=== PATIENT | male | born 1955 | race Caucasian/White ===

== ENCOUNTER 2018-02-07 11:42 | Inpatient (IN) | payer MEDICARE ==
[2018-02-07] MEDS ORDERED: ASPIRIN 81 MG PO STA (11:57)
[2018-02-07] MEDS ORDERED: NITROGLYCERIN SL TABS 0.4 MG TAB SUBLINGUAL STA ×3 (11:57)
[2018-02-07] MEDS ORDERED: SODIUM CHLORIDE 0.9% 1,000 ML IV STA (11:57)
--- NOTE | 2018-02-07 12:02 | ED ---
General Adult HPI - General Chief complaint: Chest Pain Stated complaint: CHEST PAIN Time Seen by Provider: 02/07/18 11:52 Source: patient, family, RN notes reviewed Mode of arrival: wheelchair Limitations: no limitations - History of Present Illness Initial comments: Patient is a pleasant 63-year-old male presenting to the emergency department with complaints of chest discomfort. Onset of symptoms was last night around 2 or 3 in the morning. Discomfort progressively worsened. Patient tried to do some drywall work and symptoms got significantly worse becoming severe. Discomfort is currently improving and rated 5/10. Discomfort feels like tightness in the anterior chest. No radiation. No history of similar symptoms previously. Patient does have some associated dyspnea. Patient was diaphoretic when symptoms were severe. There was some associated nausea. Patient did also make a recent trip from [place] by car. - Related Data Home Medications Medication Instructions Recorded Confirmed Amitriptyline HCl [Elavil] 75 mg PO HS 02/07/18 02/07/18 Atorvastatin [Lipitor] 80 mg PO HS 02/07/18 02/07/18 Celecoxib [CeleBREX] 200 mg PO DAILY 02/07/18 02/07/18 Diltiazem HCl [Cartia Xt] 120 mg PO DAILY 02/07/18 02/07/18 Glimepiride [Amaryl] 1 mg PO BID 02/07/18 02/07/18 Losartan/Hydrochlorothiazide 1 tab PO DAILY 02/07/18 02/07/18 [Losartan-Hctz 100-12.5 mg Tab] Metoprolol Succinate [Toprol XL] 200 mg PO DAILY 02/07/18 02/07/18 Omeprazole 20 mg PO DAILY 02/07/18 02/07/18 Pregabalin [Lyrica] 150 mg PO TID 02/07/18 02/07/18 Spironolactone 50 mg PO DAILY 02/07/18 02/07/18 metFORMIN HCL 1,000 mg PO BID 02/07/18 02/07/18 sitaGLIPtin [Januvia] 100 mg PO DAILY 02/07/18 02/07/18 traMADol HCL [Ultram] 50 mg PO QID PRN 02/07/18 02/07/18 Allergies Allergy/AdvReac Type Severity Reaction Status Date / Time No Known Allergies Allergy Verified 02/07/18 12:26 Review of Systems ROS Statement: Those systems with pertinent positive or pertinent negative responses have been documented in the HPI. ROS Other: All systems not noted in ROS Statement are negative. Constitutional: Denies: fever Eyes: Denies: eye pain ENT: Denies: ear pain Respiratory: Reports: dyspnea. Denies: cough Cardiovascular: Reports: chest pain Endocrine: Denies: fatigue Gastrointestinal: Denies: abdominal pain Genitourinary: Denies: dysuria Musculoskeletal: Denies: back pain Skin: Denies: rash Neurological: Denies: weakness Past Medical History Past Medical History: Diabetes Mellitus, GERD/Reflux, Hyperlipidemia, Hypertension Additional Past Medical History / Comment(s): Diabetic Neuropathy History of Any Multi-Drug Resistant Organisms: None Reported Past Surgical History: Tonsillectomy Past Psychological History: No Psychological Hx Reported Smoking Status: Never smoker Past Alcohol Use History: Daily Past Drug Use History: None Reported General Exam Limitations: no limitations General appearance: alert, in no apparent distress Head exam: Present: atraumatic Eye exam: Present: normal appearance, PERRL ENT exam: Present: normal oropharynx Neck exam: Present: normal inspection Respiratory exam: Present: normal lung sounds bilaterally. Absent: chest wall tenderness Cardiovascular Exam: Present: regular rate, normal rhythm Expanded Peripheral pulses: 2+: Radial (R), Radial (L), Dorsalis Pedis (R), Dorsalis Pedis (L) GI/Abdominal exam: Present: soft. Absent: distended, tenderness Extremities exam: Present: normal inspection. Absent: pedal edema, calf tenderness Neurological exam: Present: alert Psychiatric exam: Present: normal affect, normal mood Skin exam: Present: normal color Course Vital Signs 02/07/18 02/07/18 02/07/18 11:57 12:13 12:27 Temperature 97.5 F L Pulse Rate 80 76 76 Respiratory 18 18 18 Rate Blood Pressure 167/104 137/80 124/73 O2 Sat by Pulse 98 95 98 Oximetry EKG Findings - EKG Comments: EKG Findings:: Normal sinus rhythm 81. ID 164. QRS 108. QT 386. QTc 448. Normal axis. Normal QRS. No acute ST change. Medical Decision Making - Medical Decision Making Patient reevaluated and resting comfortably in bed. Patient and family updated on results and plan. Case was discussed with Dr. Hernandez per family request who will admit for hospital call. - Lab Data Result diagrams: 02/07/18 11:56 02/07/18 11:56 Lab Results 02/07/18 02/07/18 02/07/18 Range/Units 11:56 11:56 11:56 WBC 11.9 H (3.8-10.6) k/uL RBC 4.48 (4.30-5.90) m/uL Hgb 14.9 (13.0-17.5) gm/dL Hct 42.0 (39.0-53.0) % MCV 93.6 (80.0-100.0) fL MCH 33.1 (25.0-35.0) pg MCHC 35.4 (31.0-37.0) g/dL RDW 12.8 (11.5-15.5) % Plt Count 181 (150-450) k/uL Neutrophils % 75 % Lymphocytes % 12 % Monocytes % 8 % Eosinophils % 2 % Basophils % 0 % Neutrophils # 9.0 H (1.3-7.7) k/uL Lymphocytes # 1.4 (1.0-4.8) k/uL Monocytes # 1.0 (0-1.0) k/uL Eosinophils # 0.2 (0-0.7) k/uL Basophils # 0.0 (0-0.2) k/uL PT (9.0-12.0) sec INR (<1.2) APTT (22.0-30.0) sec D-Dimer (<0.60) mg/L FEU Sodium 135 L (137-145) mmol/L Potassium 3.8 (3.5-5.1) mmol/L Chloride 100 (98-107) mmol/L Carbon Dioxide 25 (22-30) mmol/L Anion Gap 10 mmol/L BUN 14 (9-20) mg/dL Creatinine 0.80 (0.66-1.25) mg/dL Est GFR (CKD-EPI)AfAm >90 (>60 ml/min/1.73 sqM) Est GFR (CKD-EPI)NonAf >90 (>60 ml/min/1.73 sqM) Glucose 207 H (74-99) mg/dL Calcium 8.9 (8.4-10.2) mg/dL Magnesium 1.5 L (1.6-2.3) mg/dL Total Bilirubin 0.6 (0.2-1.3) mg/dL AST 23 (17-59) U/L ALT 36 (21-72) U/L Alkaline Phosphatase 82 (38-126) U/L Total Creatine Kinase 88 (55-170) U/L CK-MB (CK-2) 0.9 (0.0-2.4) ng/mL CK-MB (CK-2) Rel Index 1.0 Troponin I <0.012 (0.000-0.034) ng/mL NT-Pro-B Natriuret Pep pg/mL Total Protein 6.5 (6.3-8.2) g/dL Albumin 4.1 (3.5-5.0) g/dL Amylase 47 (30-110) U/L Lipase 271 (23-300) U/L 02/07/18 02/07/18 Range/Units 11:56 13:00 WBC (3.8-10.6) k/uL RBC (4.30-5.90) m/uL Hgb (13.0-17.5) gm/dL Hct (39.0-53.0) % MCV (80.0-100.0) fL MCH (25.0-35.0) pg MCHC (31.0-37.0) g/dL RDW (11.5-15.5) % Plt Count (150-450) k/uL Neutrophils % % Lymphocytes % % Monocytes % % Eosinophils % % Basophils % % Neutrophils # (1.3-7.7) k/uL Lymphocytes # (1.0-4.8) k/uL Monocytes # (0-1.0) k/uL Eosinophils # (0-0.7) k/uL Basophils # (0-0.2) k/uL PT 9.8 (9.0-12.0) sec INR 1.0 (<1.2) APTT 25.0 (22.0-30.0) sec D-Dimer 0.28 (<0.60) mg/L FEU Sodium (137-145) mmol/L Potassium (3.5-5.1) mmol/L Chloride (98-107) mmol/L Carbon Dioxide (22-30) mmol/L Anion Gap mmol/L BUN (9-20) mg/dL Creatinine (0.66-1.25) mg/dL Est GFR (CKD-EPI)AfAm (>60 ml/min/1.73 sqM) Est GFR (CKD-EPI)NonAf (>60 ml/min/1.73 sqM) Glucose (74-99) mg/dL Calcium (8.4-10.2) mg/dL Magnesium (1.6-2.3) mg/dL Total Bilirubin (0.2-1.3) mg/dL AST (17-59) U/L ALT (21-72) U/L Alkaline Phosphatase (38-126) U/L Total Creatine Kinase (55-170) U/L CK-MB (CK-2) (0.0-2.4) ng/mL CK-MB (CK-2) Rel Index Troponin I (0.000-0.034) ng/mL NT-Pro-B Natriuret Pep 129 pg/mL Total Protein (6.3-8.2) g/dL Albumin (3.5-5.0) g/dL Amylase (30-110) U/L Lipase (23-300) U/L - Radiology Data Radiology results: image reviewed (Chest x-ray shows some interstitial changes) Critical Care Time Critical Care Time: Yes Total Critical Care Time: 31 Disposition Clinical Impression: Unstable angina pectoris Disposition: ADMITTED IP TO THIS HOSP Is patient prescribed a controlled substance at d/c from ED?: No Referrals: Mack Delgado DO [Primary Care Provider] - 1-2 days Decision Time: 13:56
[2018-02-07 12:10] LABS: Basophils % (A) 0 %; Eosinophils # (A) 0.2 k/uL (0-0.7); Eosinophils % (A) 2 %; HGB 14.9 gm/dL (13.0-17.5); Lymphocytes # (A) 1.4 k/uL (1.0-4.8); Lymphocytes % (A) 12 %; MCH 33.1 pg (25.0-35.0); MCHC 35.4 g/dL (31.0-37.0); MCV 93.6 fL (80.0-100.0); Mean Platelet Volume 7.9; Monocytes % (A) 8 %; Neutrophils % (A) 75 %; Platelet Count 181 k/uL (150-450); RBC 4.48 m/uL (4.30-5.90); RDW 12.8 % (11.5-15.5); WBC 11.9 k/uL (3.8-10.6)
[2018-02-07 12:19] LABS: ALT 36 U/L (21-72); AST 23 U/L (17-59); Albumin 4.1 g/dL (3.5-5.0); Alkaline Phosphatase 82 U/L (38-126); Amylase 47 U/L (30-110); Anion Gap 10 mmol/L; Blood Urea Nitrogen 14 mg/dL (9-20); Calcium 8.9 mg/dL (8.4-10.2); Carbon Dioxide 25 mmol/L (22-30); Chloride 100 mmol/L (98-107); Glucose 207 mg/dL (74-99); Lipase 271 U/L (23-300); Magnesium 1.5 mg/dL (1.6-2.3); Potassium 3.8 mmol/L (3.5-5.1); Sodium 135 mmol/L (137-145); Total Bilirubin 0.6 mg/dL (0.2-1.3); Total Protein 6.5 g/dL (6.3-8.2)
[2018-02-07 12:22] LABS: D-Dimer 0.28 mg/L FEU (<0.60); Prothrombin Time 9.8 sec (9.0-12.0)
[2018-02-07] MEDS ORDERED: MAGNESIUM OXIDE 400 MG TAB PO STA (12:26)
[2018-02-07] MEDS ORDERED: NITROGLYCERIN OINT 1 INCH/GM PACKET TOPICAL STA (12:26)
[2018-02-07 12:27] LABS: Creatine Kinase 88 U/L (55-170)
[2018-02-07 12:40] LABS: Creatine Kinase MB 0.9 ng/mL (0.0-2.4); Troponin I <0.012 ng/mL (0.000-0.034)
--- NOTE | 2018-02-07 12:58 | XR ---
EXAMINATION TYPE: XR chest 2V DATE OF EXAM: 02/07/2018 HISTORY: Chest Pain. REFERENCE: NONE. FINDINGS: Heart size upper limits of normal. There is mild vascular congestion and subtle interstitia l change. Pleural spaces are clear. IMPRESSION: FINDINGS MOST CONSISTENT WITH MILD CONGESTIVE HEART FAILURE.
[2018-02-07] MEDS ORDERED: MORPHINE SULFATE 4 MG/ML SYRINGE IVP STA (13:21)
[2018-02-07] MEDS ORDERED: HEPARIN SODIUM,PORCINE 5,000 UNIT/ML 1 ML VIAL IV ONE (13:56)
[2018-02-07] MEDS ORDERED: HEPARIN SODIUM,PORCINE 5,000 UNIT/ML 1 ML VIAL IV PRN (13:56)
[2018-02-07] MEDS ORDERED: NITROGLYCERIN SL TABS 0.4 MG TAB SUBLINGUAL PRN (13:56)
[2018-02-07] MEDS ORDERED: HEPARIN SOD,PORK IN 0.45% NACL 25,000 UNIT in 0.45% NACL 1 500ML.BAG IV SCH (14:00)
--- NOTE | 2018-02-07 16:08 | P.HPIM ---
History of Present Illness H&P Date: 02/07/18 Chief Complaint: Chest pain This is a pleasant 63-year-old gentleman patient of Dr. Delgado in [place]. He has underlying history of diabetes mellitus type 2, hyperlipidemia, hypertension, diabetic neuropathy who is currently is sitting her daughter here in [place] and he drove all the way from [place] and took him 24 hours to come here. Her daughter is our nurse practitioner in the office. Patient has requested our service to follow the patient for the chest pain. He comes in with anterior substernal chest discomfort, radiating to the posterior region of the chest, without any radiation to the arms and shoulders, accompanied by diaphoresis, he working in the basement doing some drywall yesterday and woke up this morning at 3:00, with chest pressure, substernal, constant along with sharp pain during deep inspiration, this persisted there was no relief but has some relief during rest, there is no cough, patient has edema which has improving he has some nasal stuffiness, patient denies any history of MRI CAD or angina past. Stress test was over 10 years ago, echocardiogram over 10 years ago, patient does not see a variety saw operator on a routine basis, and however he was advised that he has either mitral valve disorder or other valve disorder. At home blood pressure was 140/90, blood sugars were okay Home he was given aspirin 325 mg, and subsequently evaluated in emergency room. Patient denies any history of DVT or PE in the past, While in the emergency room, he was given 3 nitroglycerin without any relief, initial troponins are negative less than 0.012, chest x-ray findings consistent with mild congestive heart failure with supple interstitial change d-dimer negative lipase normal at 271 EKG showing normal sinus rhythm with no acute ST- T wave changes. Consults to cardiology, echocardiogram to be performed along with serial troponins, Review of Systems Constitutional: Reports as per HPI, Denies anorexia, Denies chills, Denies chronic headaches, Denies chronic pain, Denies daytime sleepiness, Denies fatigue, Denies fever, Denies lethargy, Denies malaise, Denies night sweats, Denies poor appetite, Denies sweats, Denies weakness, Denies weight gain, Denies weight loss Ears, nose, mouth and throat: Reports as per HPI, Denies ant. neck pain, Denies bleeding gums, Denies dental pain, Denies dysphagia, Denies epistaxis, Denies headache, Denies hoarseness, Denies mouth pain, Denies nasal congestion, Denies nasal discharge, Denies neck fullness/pressure, Denies neck lump, Denies nose pain, Denies odynophagia, Denies post-nasal drip, Denies sinus pain, Denies sinus pressure, Denies swelling in mouth, Denies swelling in throat, Denies sore throat, Denies vertigo, Denies voice changes Cardiovascular: Reports as per HPI, Reports chest pain, Denies claudication, Denies decreased exercise tolerance, Denies dyspnea on exertion, Denies edema, Denies high blood pressure, Denies irregular heart beat, Denies leg edema, Denies lightheadedness, Denies orthopnea, Denies palpitations, Denies paroxysmal nocturnal dyspnea, Denies phlebitis, Denies rapid heart beat, Denies shortness of breath, Denies syncope Respiratory: Reports as per HPI, Denies congestion, Denies cough, Denies cough with sputum, Denies dyspnea, Denies excessive sputum, Denies hemoptysis, Denies home oxygen, Denies pain, Denies pain on inspiration, Denies pleurisy, Denies respiratory infections, Denies sleep apnea, Denies snoring, Denies wheezing Gastrointestinal: Reports as per HPI, Denies abdominal pain, Denies belching, Denies bloating, Denies BRBPR, Denies change in bowel habits, Denies coffee ground emesis, Denies constipation, Denies diarrhea, Denies dyspepsia, Denies early satiety, Denies excessive gas, Denies heartburn, Denies hematemesis, Denies hematochezia, Denies indigestion, Denies jaundice, Denies lactose intolerance, Denies loss of appetite, Denies melena, Denies nausea, Denies vomiting Genitourinary: Reports as per HPI, Denies decreased libido, Denies difficulties fathering child, Denies discharge, Denies dysuria, Denies erectile dysfunction, Denies flank pain, Denies genital pain, Denies genital sores, Denies hematuria, Denies impotence, Denies incontinence, Denies kidney stones, Denies nocturia, Denies polyuria, Denies testicular lump, Denies testicular pain, Denies urinary frequency, Denies urinary hesitancy, Denies urinary retention Musculoskeletal: Reports as per HPI, Denies arm numbness/tingling, Denies atrophy, Denies fractures, Denies frequent falls, Denies gait dysfunction, Denies hot joints, Denies leg numbness/tingling, Denies limitation of motion, Denies loss of height, Denies low back pain, Denies morning stiffness, Denies muscle cramps, Denies muscle weakness, Denies myalgias, Denies neck pain, Denies neck stiffness, Denies prior amputations, Denies redness of joints, Denies shooting arm pain, Denies shooting leg pain Integumentary: Reports as per HPI, Denies acne, Denies boils, Denies brittle nails, Denies change in hair/nails, Denies color changes, Denies darkening of skin, Denies depigmentation, Denies dryness, Denies foot/leg ulcers, Denies growths, Denies hirsutism, Denies lesions, Denies onychomycosis, Denies pruritus , Denies rash, Denies sores, Denies striae, Denies unusual bruising, Denies wounds Neurological: Reports as per HPI, Denies aphasia, Denies ataxia, Denies balance difficulties, Denies burning pain, Denies change in mentation, Denies change in smell/taste, Denies change in speech, Denies confusion, Denies convulsions, Denies double vision, Denies gait dysfunction, Denies head injury, Denies headaches, Denies hearing difficulties, Denies lack of coordination, Denies loss of vision, Denies memory loss, Denies migraines, Denies motor disturbance, Denies numbness, Denies paralysis, Denies paresthesias, Denies seizures, Denies sensory deficit, Denies spasticity, Denies syncope, Denies tic, Denies tingling , Denies transient paralysis, Denies tremors, Denies vertigo, Denies weakness, Denies visual changes Psychiatric: Reports as per HPI, Denies anhedonia, Denies anxiety, Denies anxiety attacks, Denies change in appetite, Denies change in libido, Denies change in sleep habits, Denies confusion, Denies depression, Denies difficulty concentrating, Denies disorientation, Denies hallucinations, Denies hopelessness , Denies hypersomnia, Denies insomnia, Denies irritability, Denies memory loss, Denies mood swings, Denies paranoia, Denies sadness/tearfulness, Denies sleep disturbances, Denies suicidal ideation Endocrine: Reports as per HPI, Denies cold intolerance, Denies deepening of the voice, Denies excessive sweating, Denies excessive thirst, Denies fatigue, Denies flushing, Denies heat intolerance, Denies high blood sugars, Denies increase in ring/shoe/hat size, Denies low blood sugars, Denies nocturia, Denies palpitations, Denies polydipsia, Denies polyphagia, Denies polyuria, Denies proptosis, Denies recent glucocorticoid use, Denies thyroid mass, Denies weight change Hematologic/Lymphatic: Reports as per HPI Allergic/Immunologic: Reports as per HPI, Denies allergic rhinitis, Denies anaphylaxis, Denies angioedema, Denies gluten intolerance, Denies persistent infections, Denies seasonal allergies, Denies urticaria, Denies wheezing Past Medical History Past Medical History: Diabetes Mellitus, GERD/Reflux, Hyperlipidemia, Hypertension Additional Past Medical History / Comment(s): Diabetic Neuropathy History of Any Multi-Drug Resistant Organisms: None Reported Past Surgical History: Tonsillectomy Past Psychological History: No Psychological Hx Reported Smoking Status: Never smoker Past Alcohol Use History: Daily Past Drug Use History: None Reported - Past Family History Father History Unknown: Yes (Lung cancer) Mother History Unknown: Yes (Lung cancer diseased) Brother(s) History Unknown: Yes (One brother with diabetes mellitus type 1, CAD, complications from diabetes including PAD neuropathy, one brother healthy, no sisters) Daughter(s) History Unknown: Yes (One daughter healthy) Medications and Allergies Home Medications Medication Instructions Recorded Confirmed Type Amitriptyline HCl [Elavil] 75 mg PO HS 02/07/18 02/07/18 History Atorvastatin [Lipitor] 80 mg PO HS 02/07/18 02/07/18 History Celecoxib [CeleBREX] 200 mg PO DAILY 02/07/18 02/07/18 History Diltiazem HCl [Cartia Xt] 120 mg PO DAILY 02/07/18 02/07/18 History Glimepiride [Amaryl] 1 mg PO BID 02/07/18 02/07/18 History Losartan/Hydrochlorothiazide 1 tab PO DAILY 02/07/18 02/07/18 History [Losartan-Hctz 100-12.5 mg Tab] Metoprolol Succinate [Toprol XL] 200 mg PO DAILY 02/07/18 02/07/18 History Omeprazole 20 mg PO DAILY 02/07/18 02/07/18 History Pregabalin [Lyrica] 150 mg PO TID 02/07/18 02/07/18 History Spironolactone 50 mg PO DAILY 02/07/18 02/07/18 History metFORMIN HCL 1,000 mg PO BID 02/07/18 02/07/18 History sitaGLIPtin [Januvia] 100 mg PO DAILY 02/07/18 02/07/18 History traMADol HCL [Ultram] 50 mg PO QID PRN 02/07/18 02/07/18 History Allergies Allergy/AdvReac Type Severity Reaction Status Date / Time No Known Allergies Allergy Verified 02/07/18 12:26 Physical Exam Vitals: Vital Signs Temp Pulse Resp BP Pulse Ox 02/07/18 12:27 76 18 124/73 98 02/07/18 12:13 76 18 137/80 95 02/07/18 11:57 97.5 F L 80 18 167/104 98 Intake and Output 02/06/18 02/07/18 02/07/18 22:59 06:59 14:59 Other: Weight 102.058 kg - Constitutional General appearance: cooperative, no acute distress - EENT Eyes: anicteric sclerae, EOMI, PERRLA, dentition normal, normal appearance ENT: NA/AT, normal oropharynx - Neck Neck: normal ROM - Cardiovascular Rhythm: regular Heart sounds: normal: S1, S2 Abnormal Heart Sounds: no systolic murmur, no diastolic murmur, no rub, no S3 Gallop, no S4 Gallop, no click, no other - Gastrointestinal General gastrointestinal: normal bowel sounds, soft - Integumentary Integumentary: decreased turgor, normal, normal turgor - Neurologic Neurologic: CNII-XII intact - Musculoskeletal Musculoskeletal: gait normal, strength equal bilaterally - Psychiatric Psychiatric: A&O x's 3, appropriate affect, intact judgment & insight Results CBC & Chem 7: 02/07/18 11:56 02/07/18 11:56 Labs: Abnormal Lab Results - Last 24 Hours (Table) 02/07/18 02/07/18 Range/Units 11:56 11:56 WBC 11.9 H (3.8-10.6) k/uL Neutrophils # 9.0 H (1.3-7.7) k/uL Sodium 135 L (137-145) mmol/L Glucose 207 H (74-99) mg/dL Magnesium 1.5 L (1.6-2.3) mg/dL Laboratory Results WBC 11.9 k/uL (3.8-10.6) H 02/07/18 11:56 RBC 4.48 m/uL (4.30-5.90) 02/07/18 11:56 Hgb 14.9 gm/dL (13.0-17.5) 02/07/18 11:56 Hct 42.0 % (39.0-53.0) 02/07/18 11:56 MCV 93.6 fL (80.0-100.0) 02/07/18 11:56 MCH 33.1 pg (25.0-35.0) 02/07/18 11:56 MCHC 35.4 g/dL (31.0-37.0) 02/07/18 11:56 RDW 12.8 % (11.5-15.5) 02/07/18 11:56 Plt Count 181 k/uL (150-450) 02/07/18 11:56 Neutrophils % 75 % 02/07/18 11:56 Lymphocytes % 12 % 02/07/18 11:56 Monocytes % 8 % 02/07/18 11:56 Eosinophils % 2 % 02/07/18 11:56 Basophils % 0 % 02/07/18 11:56 Neutrophils # 9.0 k/uL (1.3-7.7) H 02/07/18 11:56 Lymphocytes # 1.4 k/uL (1.0-4.8) 02/07/18 11:56 Monocytes # 1.0 k/uL (0-1.0) 02/07/18 11:56 Eosinophils # 0.2 k/uL (0-0.7) 02/07/18 11:56 Basophils # 0.0 k/uL (0-0.2) 02/07/18 11:56 PT 9.8 sec (9.0-12.0) 02/07/18 11:56 INR 1.0 (<1.2) 02/07/18 11:56 APTT 25.0 sec (22.0-30.0) 02/07/18 11:56 D-Dimer 0.28 mg/L FEU (<0.60) 02/07/18 11:56 Sodium 135 mmol/L (137-145) L 02/07/18 11:56 Potassium 3.8 mmol/L (3.5-5.1) 02/07/18 11:56 Chloride 100 mmol/L (98-107) 02/07/18 11:56 Carbon Dioxide 25 mmol/L (22-30) 02/07/18 11:56 Anion Gap 10 mmol/L 02/07/18 11:56 BUN 14 mg/dL (9-20) 02/07/18 11:56 Creatinine 0.80 mg/dL (0.66-1.25) 02/07/18 11:56 Est GFR (CKD-EPI)AfAm >90 (>60 ml/min/1.73 sqM) 02/07/18 11:56 Est GFR (CKD-EPI)NonAf >90 (>60 ml/min/1.73 sqM) 02/07/18 11:56 Glucose 207 mg/dL (74-99) H 02/07/18 11:56 Calcium 8.9 mg/dL (8.4-10.2) 02/07/18 11:56 Magnesium 1.5 mg/dL (1.6-2.3) L 02/07/18 11:56 Total Bilirubin 0.6 mg/dL (0.2-1.3) 02/07/18 11:56 AST 23 U/L (17-59) 02/07/18 11:56 ALT 36 U/L (21-72) 02/07/18 11:56 Alkaline Phosphatase 82 U/L (38-126) 02/07/18 11:56 Total Creatine Kinase 88 U/L (55-170) 02/07/18 11:56 CK-MB (CK-2) 0.9 ng/mL (0.0-2.4) 02/07/18 11:56 CK-MB (CK-2) Rel Index 1.0 02/07/18 11:56 Troponin I <0.012 ng/mL (0.000-0.034) 02/07/18 11:56 NT-Pro-B Natriuret Pep 129 pg/mL 02/07/18 13:00 Total Protein 6.5 g/dL (6.3-8.2) 02/07/18 11:56 Albumin 4.1 g/dL (3.5-5.0) 02/07/18 11:56 Amylase 47 U/L (30-110) 02/07/18 11:56 Lipase 271 U/L (23-300) 02/07/18 11:56 Thrombosis Risk Factor Assmnt - DVT/VTE Prophylaxis DVT/VTE Prophylaxis: Pharmacologic Prophylaxis ordered Assessment and Plan Plan: 1. Acute chest pain suspicious of unstable angina with known history of diabetes mellitus hyperlipidemia and hypertension, no previous history of IL in the past. No history of DVT. Patient had a recent trip coming in to [place] from [place], and had some leg swelling along the way. Patient will be seen consultation by cardiology, with CHF changes and chest x-ray, and lower extremity edema, we'll going to give IV Lasix 40 mg twice a day, cardiac troponins, heparin IV, and nitro did continue an aspirin, echocardiogram to be performed, patient might need a cardiac cath or stress test depending on laboratories next 2. Diabetes mellitus type 2, hemoglobin A1c to be done, continue on Amaryl 1 mg twice a day along with correctional scale Accu-Cheks before meals and at bedtime continue Januvia 3. Hypertension on diltiazem 120 mg daily daily spironolactone 50 mg daily losartan 100/12.5 daily and metoprolol 200 mg daily 4. Hyperlipidemia on Lipitor 80 mg daily fasting lipids in a.m. 5. Diabetes with neuropathy, Elavil 75 mg at bedtime and tramadol 50 4 times a day when necessary Celebrex 200 mg daily 6. CK D stage I, metformin to be helped with the anticipation that he might need to undergo cardiac cath 7. Suspect diastolic type of CHF exacerbation, acute with dependent edema, Lasix 40 mg IV twice a day for a few doses, to place potassium echocardiogram to be done 7. BMI of 31 DVT prophylaxis GI prophylaxis
[2018-02-07] MEDS ORDERED: FUROSEMIDE 10 MG/ML 4 ML VIAL IV ONE (16:15)
[2018-02-07] MEDS ORDERED: MORPHINE SULFATE 2 MG/ML SYRINGE IVP PRN (16:33)
[2018-02-07] MEDS ORDERED: PREGABALIN 75 MG CAP PO STA (16:35)
[2018-02-07 16:54] LABS: Glucose,Whole Blood 98 mg/dL (75-99)
[2018-02-07] MEDS: MORPHINE SULFATE 2 MG/ML SYRINGE IVP PRN ×2 (18:28→21:58)
[2018-02-07] MEDS: GLIMEPIRIDE 1 MG TAB PO SCH (18:29)
[2018-02-07 18:46] LABS: Creatine Kinase 72 U/L (55-170)
[2018-02-07 18:59] LABS: Creatine Kinase MB 0.8 ng/mL (0.0-2.4); Troponin I <0.012 ng/mL (0.000-0.034)
[2018-02-07] MEDS: NITROGLYCERIN OINT 1 INCH/GM PACKET TOPICAL SCH (19:26)
[2018-02-07] MEDS: traMADol 50 MG TAB PO PRN (20:06)
[2018-02-07] MEDS: ATORVASTATIN 80 MG TAB PO SCH (20:07)
[2018-02-07] MEDS: PREGABALIN 75 MG CAP PO SCH (20:07)
[2018-02-07] MEDS: AMITRIPTYLINE HCL 25 MG TAB PO SCH (20:07)
[2018-02-07 20:09] LABS: Glucose,Whole Blood 131 mg/dL (75-99)
[2018-02-08 00:10] LABS: Creatine Kinase 61 U/L (55-170)
[2018-02-08 00:23] LABS: Creatine Kinase MB 0.5 ng/mL (0.0-2.4); Troponin I <0.012 ng/mL (0.000-0.034)
[2018-02-08] MEDS: NITROGLYCERIN OINT 1 INCH/GM PACKET TOPICAL SCH ×2 (01:59→05:36)
[2018-02-08] MEDS: MORPHINE SULFATE 2 MG/ML SYRINGE IVP PRN ×2 (02:00→23:12)
[2018-02-08] MEDS: traMADol 50 MG TAB PO PRN ×2 (03:10→22:09)
[2018-02-08 03:13] LABS: Cholesterol 184 mg/dL (<200); HDL Cholesterol 43 mg/dL (40-60); LDL Cholesterol,Calculated 86 mg/dL (0-99); Triglycerides 277 mg/dL (<150)
[2018-02-08 04:33] LABS: Basophils % (A) 0 %; Eosinophils # (A) 0.3 k/uL (0-0.7); Eosinophils % (A) 3 %; HCT 45.1 % (39.0-53.0); HGB 14.7 gm/dL (13.0-17.5); Lymphocytes # (A) 1.7 k/uL (1.0-4.8); Lymphocytes % (A) 16 %; MCH 31.7 pg (25.0-35.0); MCHC 32.5 g/dL (31.0-37.0); MCV 97.4 fL (80.0-100.0); Mean Platelet Volume 7.5; Monocytes # (A) 0.9 k/uL (0-1.0); Monocytes % (A) 8 %; Neutrophils # (A) 7.7 k/uL (1.3-7.7); Neutrophils % (A) 70 %; Platelet Count 173 k/uL (150-450); RBC 4.63 m/uL (4.30-5.90); RDW 13.2 % (11.5-15.5)
[2018-02-08 04:42] LABS: Anion Gap 9 mmol/L; Blood Urea Nitrogen 12 mg/dL (9-20); Carbon Dioxide 29 mmol/L (22-30); Chloride 98 mmol/L (98-107); Glucose 153 mg/dL (74-99); Potassium 3.6 mmol/L (3.5-5.1); Sodium 136 mmol/L (137-145)
[2018-02-08 06:38] LABS: Glucose,Whole Blood 155 mg/dL (75-99)
[2018-02-08] MEDS ORDERED: FUROSEMIDE 10 MG/ML 4 ML VIAL IV SCH (07:00)
[2018-02-08] MEDS ORDERED: ASPIRIN 325 MG TAB PO STA (08:44)
[2018-02-08] MEDS ORDERED: ALPRAZolam 0.25 MG TAB PO PRN (08:44)
[2018-02-08] MEDS ORDERED: NITROGLYCERIN SL TABS 0.4 MG TAB SUBLINGUAL PRN (08:44)
[2018-02-08] MEDS ORDERED: ATORVASTATIN 80 MG TAB PO STA (08:44)
[2018-02-08] MEDS ORDERED: ALPRAZolam 0.5 MG TAB PO PRN (08:44)
[2018-02-08] MEDS ORDERED: SODIUM CHLORIDE 0.9% 1,000 ML in EMPTY BAG 1 BAG IV ONE (08:44)
[2018-02-08] MEDS: ASPIRIN 81 MG PO SCH (08:57)
[2018-02-08] MEDS ORDERED: NON-FORMULARY DRUG (Losartan/Hydrochlorothiazide [Losartan-Hctz 100-12.5 Mg Tab] 1 TAB) PO SCH (09:00)
[2018-02-08] MEDS ORDERED: ASPIRIN 325 MG TAB PO SCH (09:00)
[2018-02-08] MEDS: SPIRONOLACTONE 25 MG TAB PO SCH (09:11)
[2018-02-08] MEDS: HYDROCHLOROTHIAZIDE 12.5 MG CAP PO SCH (09:12)
[2018-02-08] MEDS: PANTOPRAZOLE 40 MG TABLET PO SCH (09:12)
[2018-02-08] MEDS: LOSARTAN 50 MG TAB PO SCH (09:12)
[2018-02-08] MEDS: MELOXICAM 7.5 MG TAB PO SCH (09:12)
[2018-02-08] MEDS: PREGABALIN 75 MG CAP PO SCH ×3 (09:12→21:53)
[2018-02-08] MEDS: METOPROLOL SUCCINATE (ER) 100 MG TAB.ER.24H PO SCH (09:12)
[2018-02-08] MEDS: MAGNESIUM OXIDE 400 MG TAB PO SCH (09:12)
[2018-02-08] MEDS: DILTIAZEM CD 120 MG CAP.ER.24H PO SCH (09:12)
[2018-02-08] MEDS ORDERED: VERAPAMIL 2.5 MG/ML 2 ML AMP ONE ×3 (10:48→11:27)
[2018-02-08] MEDS ORDERED: MIDAZOLAM 2 MG/2 ML VIAL ONE ×2 (10:48→11:20)
[2018-02-08] MEDS ORDERED: LIDOCAINE 1% INJ 10MG/ML (20 ML MDV) ONE (10:48)
[2018-02-08] MEDS ORDERED: diphenhydrAMINE 50 MG/ML 1 ML VIAL ONE (10:48)
[2018-02-08] MEDS ORDERED: diphenhydrAMINE 50 MG/ML 1 ML VIAL IVP ONE (11:09)
[2018-02-08] MEDS ORDERED: LIDOCAINE 1% INJ 10MG/ML (20 ML MDV) SQ ONE (11:09)
[2018-02-08] MEDS ORDERED: MIDAZOLAM 2 MG/2 ML VIAL IVP ONE ×2 (11:09→11:21)
[2018-02-08] MEDS ORDERED: VERAPAMIL SYRINGE (5 MG/10 ML) INTRAARTER ONE ×3 (11:10→11:41)
[2018-02-08] MEDS ORDERED: IV FLUID CONTINUATION 1,000 ML IV ONE (11:12)
--- NOTE | 2018-02-08 11:46 | P.CRDCN ---
History of Present Illness History of present illness: Mr. Rose is a pleasant 63-year-old male past medical history significant for hypertension, dyslipidemia, diabetes mellitus, gastroesophageal reflux disease, former smoker quit 20 years ago and daily use of alcohol. He denies history of coronary artery disease and has never seen a ski lift attendant for any reason. We have been asked to see him in consultation for chest pain. He is here visiting his daughter from [place] and assisting with basement renovations. He states they drove straight through on Thursday for over 20 hours and he did develop some lower extremity edema, which is not abnormal for him when driving long distances. The edema resolved by the time he woke up Thursday morning. Thursday night after eating a burger he felt nauseated and vomited one time. No chest pain or other symptoms at that time. He went to bed feeling normal. He woke up Thursday with a tight chest pain radiating through to the back that was worse when he took a deep breath. The pain was not significant so he carried on with his day and did work on the basement renovations. Through the day he continued to feel the tightness and it seemed to get worse with activity and improved when he sat down and rested. He has associated shortness of breath, dizziness and diaphoresis at times. The pain was continuing to radiate through to his back but there was no radiation to the arm, neck or jaw. He denies palpitations, cough, fever/chills, PND orthopnea. While in the hospital last night he went into atrial fibrillation with controlled ventricular response. He was asymptomatic during this. Per telemetry this was ongoing back and forth from sinus to a-fib. Currently he is in sinus. He denies history of any arrhythmia in the past. EKG on arrival reveals sinus mechanism with no acute ST or T wave abnormalities noted. Chest x-ray with mild vascular congestion noted. Laboratory data reviewed, WBC on admission 11.9 repeat this morning 11.0, hemoglobin 14.7, platelets 173, d-dimer 0.28, sodium 136, potassium 3.6, magnesium 1.5, cardiac enzymes negative 3, LDL 86, HDL 43, triglycerides 277 and total cholesterol 184, proBNP 129, creatinine 0.9. Current cardiac medications include atorvastatin 80 mg daily, Aldactone 50 mg daily, Toprol 200 mg daily, valsartan/HCTZ 100/12.5 mg daily and diltiazem 120 mg daily. He also takes Ultram, Elavil, Januvia, metformin, Lyrica, omeprazole , Amaryl and Celebrex. There is no old cardiac diagnostic testing to review. Review of Systems At the time of my exam: CONSTITUTIONAL: Denies fever. Denies chills. EYES: Denies blurred vision. Denies vision changes. Denies eye pain. EARS, NOSE, MOUTH & THROAT: Denies headache. Denies sore throat. Denies ear pain. CARDIOVASCULAR: Denies chest pain. Denies shortness of breath. Denies orthopnea. Denies PND. Denies palpitations. RESPIRATORY: Denies cough. GASTROINTESTINAL: Denies abdominal pain. Denies diarrhea. Denies constipation. Denies nausea. Denies vomiting. MUSCULOSKELETAL: Denies myalgias. INTEGUMENTARY: Denies pruitis. Denies rash. NEUROLOGIC: Denies numbness. Denies tingling. Denies weakness. PSYCHIATRIC: Denies anxiety. Denies depression. ENDOCRINE: Denies fatigue. Denies weight change. Denies polydipsia. Denies polyurina. GENITOURINARY: Denies burning, hematuria or urgency with micturation. HEMATOLOGIC: Denies history of anemia. Denies bleeding. Past Medical History Past Medical History: Diabetes Mellitus, GERD/Reflux, Hyperlipidemia, Hypertension Additional Past Medical History / Comment(s): Diabetic Neuropathy History of Any Multi-Drug Resistant Organisms: None Reported Past Surgical History: Tonsillectomy Past Psychological History: No Psychological Hx Reported Smoking Status: Never smoker Past Alcohol Use History: Daily Past Drug Use History: None Reported - Past Family History Father History Unknown: Yes (Lung cancer) Mother History Unknown: Yes (Lung cancer diseased) Brother(s) History Unknown: Yes (One brother with diabetes mellitus type 1, CAD, complications from diabetes including PAD neuropathy, one brother healthy, no sisters) Daughter(s) History Unknown: Yes (One daughter healthy) Medications and Allergies Home Medications Medication Instructions Recorded Confirmed Type Amitriptyline HCl [Elavil] 75 mg PO HS 02/07/18 02/07/18 History Atorvastatin [Lipitor] 80 mg PO HS 02/07/18 02/07/18 History Celecoxib [CeleBREX] 200 mg PO DAILY 02/07/18 02/07/18 History Diltiazem HCl [Cartia Xt] 120 mg PO DAILY 02/07/18 02/07/18 History Glimepiride [Amaryl] 1 mg PO BID 02/07/18 02/07/18 History Losartan/Hydrochlorothiazide 1 tab PO DAILY 02/07/18 02/07/18 History [Losartan-Hctz 100-12.5 mg Tab] Metoprolol Succinate [Toprol XL] 200 mg PO DAILY 02/07/18 02/07/18 History Omeprazole 20 mg PO DAILY 02/07/18 02/07/18 History Pregabalin [Lyrica] 150 mg PO TID 02/07/18 02/07/18 History Spironolactone 50 mg PO DAILY 02/07/18 02/07/18 History metFORMIN HCL 1,000 mg PO BID 02/07/18 02/07/18 History sitaGLIPtin [Januvia] 100 mg PO DAILY 02/07/18 02/07/18 History traMADol HCL [Ultram] 50 mg PO QID PRN 02/07/18 02/07/18 History Allergies Allergy/AdvReac Type Severity Reaction Status Date / Time No Known Allergies Allergy Verified 02/07/18 12:26 Physical Exam Vitals: Vital Signs Temp Pulse Pulse Resp BP BP BP 02/08/18 07:32 98.8 F 92 16 108/72 02/08/18 04:00 18 02/08/18 03:05 99.8 F H 102 H 18 127/84 02/07/18 23:57 18 02/07/18 23:10 98.9 F 88 18 110/74 02/07/18 20:00 18 02/07/18 19:10 99.4 F 78 18 152/80 02/07/18 15:55 02/07/18 15:00 98.5 F 56 L 18 125/73 02/07/18 14:29 76 18 131/75 02/07/18 12:27 76 18 124/73 02/07/18 12:13 76 18 137/80 02/07/18 11:57 97.5 F L 80 18 167/104 Pulse Ox 02/08/18 07:32 92 L 02/08/18 04:00 02/08/18 03:05 98 02/07/18 23:57 02/07/18 23:10 94 L 02/07/18 20:00 02/07/18 19:10 94 L 02/07/18 15:55 98 02/07/18 15:00 92 L 02/07/18 14:29 99 02/07/18 12:27 98 02/07/18 12:13 95 02/07/18 11:57 98 Intake and Output 02/07/18 02/08/18 02/08/18 22:59 06:59 14:59 Intake Total 145.667 201.559 Balance 145.667 201.559 Intake: Intake, IV Titration 145.667 201.559 Amount Heparin Sod,Pork in 0.45% 145.667 201.559 NaCl 25,000 unit In 0.45 % NaCl 1 500ml.bag @ 9.8 UNITS/KG/HR 20 mls/hr IV .Q24H [facility] Rx#:[id number] Other: Voiding Method Toilet Toilet # Voids 1 1 Weight 105.7 kg Blood pressure 108/72 heart rate 92 afebrile maintaining oxygen saturation on room air GENERAL: This is a 63-year-old male in no apparent distress at the time of my examination. HEENT: Head is atraumatic, normocephalic. Pupils are equal, round. Sclerae anicteric. Conjunctivae are clear. Mucous membranes of the mouth are moist. Neck is supple. There is no jugular venous distention. No carotid bruit is heard. LUNGS: Clear to auscultation no wheezes, rales or rhonchi. No chest wall tenderness is noted on palpation or with deep breathing. HEART: Regular rate and rhythm without murmurs, rubs or gallops. S1 and S2 heard. ABDOMEN: Soft, nontender. Bowel sounds are heard. No organomegaly noted. EXTREMITIES: No evidence of peripheral edema and no calf tenderness noted. VASCULAR: Radial and dorsalis pedis pulses palpated, no evidence of clubbing. NEUROLOGIC: Patient is awake, alert and oriented x3. Results 02/08/18 03:51 02/08/18 03:51 Cardiac Enzymes 02/07/18 02/07/18 02/07/18 Range/Units 11:56 11:56 17:53 AST 23 (17-59) U/L CK-MB (CK-2) 0.9 0.8 (0.0-2.4) ng/mL Troponin I <0.012 <0.012 (0.000-0.034) ng/mL 02/07/18 Range/Units 23:36 AST (17-59) U/L CK-MB (CK-2) 0.5 (0.0-2.4) ng/mL Troponin I <0.012 (0.000-0.034) ng/mL Coagulation 02/07/18 02/07/18 02/08/18 Range/Units 11:56 20:24 03:51 PT 9.8 (9.0-12.0) sec APTT 25.0 32.3 H 35.6 H (22.0-30.0) sec Lipids 02/07/18 Range/Units 11:56 Triglycerides 277 H (<150) mg/dL Cholesterol 184 (<200) mg/dL HDL Cholesterol 43 (40-60) mg/dL CBC 02/07/18 02/08/18 Range/Units 11:56 03:51 WBC 11.9 H 11.0 H (3.8-10.6) k/uL RBC 4.48 4.63 (4.30-5.90) m/uL Hgb 14.9 14.7 (13.0-17.5) gm/dL Hct 42.0 45.1 (39.0-53.0) % Plt Count 181 173 (150-450) k/uL Comprehensive Metabolic Panel 02/07/18 02/08/18 Range/Units 11:56 03:51 Sodium 135 L 136 L (137-145) mmol/L Potassium 3.8 3.6 (3.5-5.1) mmol/L Chloride 100 98 (98-107) mmol/L Carbon Dioxide 25 29 (22-30) mmol/L BUN 14 12 (9-20) mg/dL Creatinine 0.80 0.90 (0.66-1.25) mg/dL Glucose 207 H 153 H (74-99) mg/dL Calcium 8.9 9.0 (8.4-10.2) mg/dL AST 23 (17-59) U/L ALT 36 (21-72) U/L Alkaline Phosphatase 82 (38-126) U/L Total Protein 6.5 (6.3-8.2) g/dL Albumin 4.1 (3.5-5.0) g/dL Current Medications Generic Name Dose Route Start Last Admin Trade Name Freq PRN Reason Stop Dose Admin Amitriptyline HCl 75 mg 02/07/18 21:00 02/07/18 20:07 Elavil PO 75 mg HS SEAN Administration Aspirin 325 mg 02/08/18 09:00 Aspirin PO DAILY [facility] Atorvastatin Calcium 80 mg 02/07/18 21:00 02/07/18 20:07 Lipitor PO 80 mg HS SEAN Administration Diltiazem HCl 120 mg 02/08/18 09:00 Cardizem Cd PO DAILY [facility] Furosemide 40 mg 02/08/18 07:00 Lasix IV 0700,1500 SEAN Glimepiride 1 mg 02/07/18 17:30 02/07/18 18:29 Amaryl PO Not Given AC-BID SEAN Heparin Sodium (Porcine) 0 unit 02/07/18 13:56 Heparin IV Q6HR PRN Low PTT Protocol Hydrochlorothiazide 12.5 mg 02/08/18 09:00 Hydrodiuril PO DAILY [facility] Sodium Chloride 1,000 mls @ 20 mls/hr 02/07/18 11:57 02/07/18 12:07 Saline 0.9% IV 02/08/18 11:56 20 mls/hr .Q24H STA Administration Heparin Sodium/Sodium Chloride 500 mls @ 20 mls/hr 02/07/18 14:00 02/08/18 05 :36 25,000 unit/ Sodium Chloride IV 15.8 units/kg/hr .Q24H SEAN 32.25 mls/hr Titration Protocol 9.8 UNITS/KG/HR Linagliptin 5 mg 02/08/18 09:00 Tradjenta PO DAILY [facility] Losartan Potassium 100 mg 02/08/18 09:00 Cozaar PO DAILY [facility] Magnesium Oxide 400 mg 02/08/18 09:00 Mag-Ox PO DAILY [facility] Meloxicam 7.5 mg 02/08/18 09:00 Mobic PO DAILY [facility] Metoprolol Succinate 200 mg 02/08/18 09:00 Toprol Xl PO DAILY [facility] Morphine Sulfate 1 mg 02/07/18 16:33 Morphine Sulfate (Inj) IVP Q3HR PRN Mild Pain Morphine Sulfate 2 mg 02/07/18 16:34 02/08/18 02:00 Morphine Sulfate (Inj) IVP 2 mg Q3HR PRN Administration Moderate to Severe Pain Nitroglycerin 1 inch 02/07/18 18:00 02/08/18 05:36 Nitro-Bid Oint TOPICAL Not Given Q6HR [facility] Nitroglycerin 0.4 mg 02/07/18 13:56 Nitrostat SUBLINGUAL Q5M PRN Chest Pain Pantoprazole Sodium 40 mg 02/08/18 07:30 Protonix PO AC-BRKFST [facility] Pregabalin 150 mg 02/07/18 22:00 02/07/18 20:07 Lyrica PO 150 mg TID SEAN Administration Sodium Chloride 10 ml 02/07/18 21:00 02/07/18 20:07 Saline Flush IV 10 ml BID SEAN Administration Spironolactone 50 mg 02/08/18 09:00 Aldactone PO DAILY [facility] Tramadol HCl 50 mg 02/07/18 16:26 02/08/18 03:10 Ultram PO 50 mg QID PRN Administration Pain Intake and Output 02/07/18 02/08/18 02/08/18 22:59 06:59 14:59 Intake Total 145.667 201.559 Balance 145.667 201.559 Intake: Intake, IV Titration 145.667 201.559 Amount Heparin Sod,Pork in 0.45% 145.667 201.559 NaCl 25,000 unit In 0.45 % NaCl 1 500ml.bag @ 9.8 UNITS/KG/HR 20 mls/hr IV .Q24H [facility] Rx#:[id number] Other: Voiding Method Toilet Toilet # Voids 1 1 Weight 105.7 kg 02/08/18 03:51 02/08/18 03:51 Assessment and Plan Assessment: ASSESSMENT Unstable angina New onset paroxysmal atrial fibrillation Hypomagnesemia, replaced Hypertension Dyslipidemia Diabetes mellitus PLAN Obtain 2D echocardiogram and doppler study to assess cardiac structure and function. Check TSH. Recommend proceeding with coronary angiography to further assess for coronary artery disease. I have discussed the risks, benefits and alternative therapies for the above-mentioned procedure and for both sedation/analgesia as well as necessary blood product administration, if indicated, as they pertain to this patient. The patient has indicated understanding and acceptance of the risks and procedures discussed. Questions have been answered appropriately and he is agreeable to move forward with above stated procedure. Case has been boarded and pre-cath orders placed. Anti-coagulation will have to be addressed after his procedure for new onset of atrial fibrillation. He has been on a heparin infusion since admission for ACS protocol. Further recommendations to follow based on clinical course. Thank you kindly for this consultation. Nurse Practitioner note has been reviewed, I agree with a documented findings and plan of care. Patient was seen and examined.
[2018-02-08] MEDS ORDERED: IOPAMIDOL-370 125ML BTL INJ ONE (11:51)
--- NOTE | 2018-02-08 11:55 | ECHOF ---
Referral Reason:ua MEASUREMENTS -------- HEIGHT: 182.9 cm WEIGHT: 105.7 kg BP: 127/84 IVSd: 1.2 cm (0.6 - 1.1) LVIDd: 5.2 cm (3.9 - 5.3) LVPWd: 1.3 cm (0.6 - 1.1) IVSs: 1.6 cm LVIDs: 4.7 cm LVPWs: 1.8 cm Ao Diam: 3.5 cm (2.0 - 3.7) AV Cusp: 2.2 cm (1.5 - 2.6) LA Diam: 3.5 cm (2.7 - 3.8) MV E Reji: 0.35 m/s MV DecT: 345 ms MV A Reji: 0.46 m/s MV E/A Ratio: 0.76 RAP: 5.00 mmHg RVSP: 24.97 mmHg FINDINGS -------- Sinus rhythm. This was a techncally difficult study with suboptimal views, , Lumason utilized for enhancement of im ages. The left ventricular size is normal. There is mild concentric left ventricular hypertrophy. Overa ll left ventricular systolic function is normal with, an EF between 55 - 60 %. The right ventricle is normal in size. The left atrial size is normal. The right atrial size is normal. 5.0mg OF Lumason UTLIZED: 2 OR MORE WALL SEGMENTS NOT VISUALIZED. The aortic valve was not well visualized. The mitral valve was not well visualized. Mild mitral regurgitation is present. Mild tricuspid regurgitation present. There is no evidence of pulmonary hypertension. The right v entricular systolic pressure, as measured by Doppler, is 24.97mmHg. The pulmonic valve was not well visualized. There is no pulmonic regurgitation present. The aortic root size is normal. There is no pericardial effusion. CONCLUSIONS -------- 1. Sinus rhythm. 2. This was a techncally difficult study with suboptimal views, , Lumason utilized for enhancement of images. 3. The left ventricular size is normal. 4. There is mild concentric left ventricular hypertrophy. 5. Overall left ventricular systolic function is normal with, an EF between 55 - 60 %. 6. The left atrial size is normal. 7. 5.0mg OF Lumason UTLIZED: 2 OR MORE WALL SEGMENTS NOT VISUALIZED. 8. The aortic valve was not well visualized. 9. Mild mitral regurgitation is present. 10. Mild tricuspid regurgitation present. 11. There is no evidence of pulmonary hypertension. 12. The pulmonic valve was not well visualized. 13. There is no pulmonic regurgitation present. 14. The aortic root size is normal. 15. There is no pericardial effusion. TAXONOMY TEACHER: Dee Patel RDCS
[2018-02-08] MEDS ORDERED: RX INFO: IV CONTRAST WAS GIVEN 1 EACH MISC MISCELLANE PRN (12:09)
[2018-02-08] MEDS ORDERED: SODIUM CHLORIDE 0.9% 1,000 ML IV SCH (12:15)
--- NOTE | 2018-02-08 12:54 | CC ---
CARDIAC CATHETERIZATION REPORT Mr. Rose is a 63-year-old male who was visiting from [place] with a history of hypertension, hyperlipidemia, diabetes mellitus, who presented with symptoms of chest tightness, exertion pattern as well as dyspnea on exertion. He had no enzymatic changes but on his EKG, he had episode of paroxysmal atrial fibrillation and because of that, his multiple risk factors, recommendation made regarding cardiac catheterization. The procedures, risks and complications were discussed with the patient who is in full understanding and agreement. PROCEDURE: Patient was brought to the lab instructor in a fasting semi-sedated state after receiving fentanyl and Benadryl and achieving moderate conscious sedated state. Using Xylocaine anesthesia and Seldinger technique, a 6-Jordanian sheath was introduced in the right radial artery. Selective right coronary angiography performed using 5-Jordanian 3.5 bend right and left Lobo catheter. Attempts to cannulate the left main using a 5-Jordanian 3.5 left Lobo, 6-Jordanian Richard and a 5-Jordanian multipurpose were unsuccessful because of severe spasm in the radial artery that would not improve in spite of intra-arterial verapamil as well as sedation. Following that, using Xylocaine anesthesia and Seldinger technique, a 6-Jordanian sheath was introduced in the right femoral artery. Selective left coronary angiography performed using 6-Jordanian 4 bend left Lobo catheter. Images of the coronary arteries were obtained. Following that, a 6-Jordanian tight pigtail catheter was introduced in the left ventricle and a 30 degree ARNDT view of the left ventricle was obtained. Following that, catheter and sheaths were removed. Hemostasis was obtained with deployment of a TR band and compression of the right femoral artery. There was no immediate complication. Patient is returned to his room in stable condition. Of note, the patient received 5000 units of intravenous heparin as well as intra-arterial verapamil. FINDINGS: LEFT MAIN: This is a large-sized vessel, bifurcating into left circumflex, left anterior descending artery. Left main coronary artery has no evidence of high-grade stenosis. LEFT ANTERIOR DESCENDING ARTERY: This is a large-sized vessel, reaching toward the apex, tapers down in distal third, giving rise to 3 diagonal branches, the first one is largest in caliber. The proximal left anterior descending artery has 20% to 30% plaque without any evidence of high-grade stenosis. LEFT CIRCUMFLEX: This is a nondominant vessel, giving rise to a large proximal obtuse marginal branch. The second and third obtuse marginal branch are small in caliber. The left circumflex has mild intimal disease without any evidence of high-grade stenosis. RIGHT CORONARY ARTERY: This is a large dominant vessel, bifurcating into PDA posterolateral segment branches. The PDA reaches toward the inferoapical wall. The right coronary artery in the mid segment has mild intimal disease without any evidence of high-grade stenosis. LEFT VENTRICULOGRAM: Left ventriculogram is performed in 30-degree ARNDT view and revealed normal left ventricular size and systolic function, ejection fraction 55%. There was no significant mitral regurgitation. HEMODYNAMICS: There was no gradient across the aortic valve, the left ventricular end- diastolic pressure was 12 mmHg. CONCLUSION: 1. Mild triple-vessel coronary artery disease. 2. Normal left ventricular size and systolic function. RECOMMENDATION: In view of finding anatomy, I recommend continue medical therapy with aggressive risk factor modifications. Patient will be anticoagulated and start on drug. Those findings and recommendation were discussed with the patient who is in full understanding and agreement. Duration of procedure is 26 minutes. MMODL / IJN: [id number] /
[2018-02-08 13:02] LABS: Glucose,Whole Blood 125 mg/dL (75-99)
[2018-02-08] MEDS ORDERED: IPRATROPIUM-ALBUTEROL 3 ML NEB INHALATION PRN (13:57)
[2018-02-08] MEDS: GLIMEPIRIDE 1 MG TAB PO SCH ×2 (14:01→17:51)
[2018-02-08] MEDS: FLECAINIDE 50 MG TAB PO SCH ×2 (14:07→21:53)
[2018-02-08] MEDS: LINAGLIPTIN 5 MG TABLET PO SCH (14:52)
[2018-02-08 15:23] LABS: Hemoglobin A1C 6.3 % (4.0-6.0)
--- NOTE | 2018-02-08 15:33 | P.PN ---
Subjective Progress Note Date: 02/08/18 This is a pleasant 63-year-old gentleman patient of Dr. Delgado in [place]. 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 Her daughter is our nurse practitioner in the office. Patient has requested our service to follow the patient for the chest pain. He comes in with anterior substernal chest discomfort, radiating to the posterior region of the chest, without any radiation to the arms and shoulders, accompanied by diaphoresis, he working in the basement doing some drywall yesterday and woke up this morning at 3:00, with chest pressure, substernal, constant along with sharp pain during deep inspiration, this persisted there was no relief but has some relief during rest, there is no cough, patient has edema which has improving he has some nasal stuffiness, patient denies any history of MRI CAD or angina past. Stress test was over 10 years ago, echocardiogram over 10 years ago, patient does not see a fund manager on a routine basis, and however he was advised that he has either mitral valve disorder or other valve disorder. At home blood pressure was 140/90, blood sugars were okay Home he was given aspirin 325 mg, and subsequently evaluated in emergency room. Patient denies any history of DVT or PE in the past, While in the emergency room, he was given 3 nitroglycerin without any relief, initial troponins are negative less than 0.012, chest x-ray findings consistent with mild congestive heart failure with supple interstitial change d-dimer negative lipase normal at 271 EKG showing normal sinus rhythm with no acute ST- T wave changes. Consults to cardiology, echocardiogram to be performed along with serial troponins, 02/08: Echocardiogram reveals EF of 55-60%, mild concentric left ventricular hypertrophy, mild mitral regurgitation, mild tricuspid regurgitation, no pulmonary hypertension. Patient has been seen by cardiology and is undergoing heart catheterization that revealed mild triple-vessel coronary artery disease and normal left jugular size and systolic function. Plan is to start the patient on anticoagulation and antiarrhythmic. Patient was started on flecainide Objective - Vital Signs Vital signs: Vital Signs Temp 98.8 F 02/08/18 07:32 Pulse 92 02/08/18 08:00 Resp 16 02/08/18 08:00 BP 108/72 02/08/18 07:32 Pulse Ox 92 L 02/08/18 07:32 Intake & Output 02/07/18 02/08/18 02/08/18 18:59 06:59 18:59 Intake Total 347.226 Balance 347.226 Weight 105.7 kg Intake: Intake, IV Titration 347.226 Amount Heparin Sod,Pork in 0.45% 347.226 NaCl 25,000 unit In 0.45 % NaCl 1 500ml.bag @ 9.8 UNITS/KG/HR 20 mls/hr IV .Q24H SEAN Rx#:[id number] Other: Voiding Method Toilet Toilet Toilet # Voids 1 - Exam General appearance: cooperative, no acute distress - EENT Eyes: anicteric sclerae, EOMI, PERRLA, dentition normal, normal appearance ENT: NA/AT, normal oropharynx - Neck Neck: normal ROM - Cardiovascular Rhythm: regular Heart sounds: normal: S1, S2 Abnormal Heart Sounds: no systolic murmur, no diastolic murmur, no rub, no S3 Gallop, no S4 Gallop, no click, no other - Gastrointestinal General gastrointestinal: normal bowel sounds, soft - Integumentary Integumentary: decreased turgor, normal, normal turgor - Neurologic Neurologic: CNII-XII intact - Musculoskeletal Musculoskeletal: gait normal, strength equal bilaterally - Psychiatric Psychiatric: A&O x's 3, appropriate affect, intact judgment & insight - Labs CBC & Chem 7: 02/08/18 03:51 02/08/18 03:51 Labs: Abnormal Lab Results - Last 24 Hours (Table) 02/07/18 02/07/18 02/07/18 Range/Units 11:56 11:56 11:56 WBC 11.9 H (3.8-10.6) k/uL Neutrophils # 9.0 H (1.3-7.7) k/uL APTT (22.0-30.0) sec Sodium 135 L (137-145) mmol/L Glucose 207 H (74-99) mg/dL POC Glucose (mg/dL) (75-99) mg/dL Magnesium 1.5 L (1.6-2.3) mg/dL Triglycerides 277 H (<150) mg/dL 0802/07/18 02/08/18 Range/Units 20:07 20:24 03:51 WBC 11.0 H (3.8-10.6) k/uL Neutrophils # (1.3-7.7) k/uL APTT 32.3 H (22.0-30.0) sec Sodium (137-145) mmol/L Glucose (74-99) mg/dL POC Glucose (mg/dL) 131 H (75-99) mg/dL Magnesium (1.6-2.3) mg/dL Triglycerides (<150) mg/dL 02/08/18 02/08/18 02/08/18 Range/Units 03:51 03:51 06:31 WBC (3.8-10.6) k/uL Neutrophils # (1.3-7.7) k/uL APTT 35.6 H (22.0-30.0) sec Sodium 136 L (137-145) mmol/L Glucose 153 H (74-99) mg/dL POC Glucose (mg/dL) 155 H (75-99) mg/dL Magnesium (1.6-2.3) mg/dL Triglycerides (<150) mg/dL Assessment and Plan Plan: 1. Acute chest pain suspicious of unstable angina with known history of diabetes mellitus hyperlipidemia and hypertension. Cardiology consult is appreciated. Heart catheterization showing mild disease. 2. Paroxysmal atrial fibrillation. Patient started on Flecainide and anticoagulation. 3. Diabetes mellitus type 2, hemoglobin A1c to be done, continue on Amaryl 1 mg twice a day along with correctional scale Accu-Cheks before meals and at bedtime continue Januvia 4. Hypertension on diltiazem 120 mg daily daily spironolactone 50 mg daily losartan 100/12.5 daily and metoprolol 200 mg daily 5. Hyperlipidemia on Lipitor 80 mg daily fasting lipids in a.m. 6. Diabetes with neuropathy, Elavil 75 mg at bedtime and tramadol 50 4 times a day when necessary Celebrex 200 mg daily 7. CKD stage I, metformin to be helped with the anticipation that he might need to undergo cardiac cath 8. Suspect diastolic type of CHF exacerbation, acute with dependent edema, Lasix 40 mg IV twice a day for a few doses, to place potassium echocardiogram to be done 7. BMI of 31 DVT prophylaxis GI prophylaxis Discharge plan: Home tomorrow Impression and plan of care have been directed as dictated by the signing physician. Sindy Lanier nurse practitioner acting as scribe for signing physician.
[2018-02-08 17:23] LABS: Glucose,Whole Blood 141 mg/dL (75-99)
[2018-02-08] MEDS: BUDESONIDE 0.5 MG/2 ML NEBU INHALATION SCH (19:39)
[2018-02-08 20:26] LABS: Glucose,Whole Blood 181 mg/dL (75-99)
[2018-02-08] MEDS: ATORVASTATIN 80 MG TAB PO SCH (21:53)
[2018-02-08] MEDS: AMITRIPTYLINE HCL 25 MG TAB PO SCH (22:09)
[2018-02-09 06:42] LABS: Basophils % (A) 0 %; Eosinophils # (A) 0.4 k/uL (0-0.7); Eosinophils % (A) 4 %; HCT 44.8 % (39.0-53.0); HGB 14.8 gm/dL (13.0-17.5); Lymphocytes # (A) 1.5 k/uL (1.0-4.8); Lymphocytes % (A) 14 %; MCH 31.6 pg (25.0-35.0); MCHC 33.1 g/dL (31.0-37.0); MCV 95.6 fL (80.0-100.0); Mean Platelet Volume 7.3; Monocytes # (A) 0.7 k/uL (0-1.0); Monocytes % (A) 7 %; Neutrophils # (A) 7.8 k/uL (1.3-7.7); Neutrophils % (A) 71 %; Platelet Count 199 k/uL (150-450); RBC 4.69 m/uL (4.30-5.90); RDW 12.9 % (11.5-15.5)
[2018-02-09 07:00] LABS: Glucose,Whole Blood 155 mg/dL (75-99)
[2018-02-09 07:12] LABS: Anion Gap 11 mmol/L; Blood Urea Nitrogen 12 mg/dL (9-20); Calcium 9.1 mg/dL (8.4-10.2); Carbon Dioxide 28 mmol/L (22-30); Chloride 100 mmol/L (98-107); Glucose 147 mg/dL (74-99); Potassium 3.9 mmol/L (3.5-5.1); Sodium 139 mmol/L (137-145)
[2018-02-09] MEDS: ASPIRIN 81 MG PO SCH (08:08)
[2018-02-09] MEDS: MAGNESIUM OXIDE 400 MG TAB PO SCH (08:08)
[2018-02-09] MEDS: LOSARTAN 50 MG TAB PO SCH (08:08)
[2018-02-09] MEDS: PANTOPRAZOLE 40 MG TABLET PO SCH (08:08)
[2018-02-09] MEDS: PREGABALIN 75 MG CAP PO SCH (08:08)
[2018-02-09] MEDS: SPIRONOLACTONE 25 MG TAB PO SCH (08:08)
[2018-02-09] MEDS: LINAGLIPTIN 5 MG TABLET PO SCH (08:09)
[2018-02-09 08:14] VITALS: BP 154/97; PULSE 78; RESP 18; TEMP 99
--- NOTE | 2018-02-09 08:47 | PN ---
PROGRESS NOTE Mr. Rose 63-year-old male with known history of hypertension, hyperlipidemia, and diabetes mellitus who presented with symptoms of dyspnea and chest discomfort. His cardiac enzymes were unremarkable. On the monitor he had episode of paroxysmal atrial fibrillation. Because of his symptoms presentation, he underwent cardiac catheterization revealed mild triple-vessel coronary artery disease with preserved systolic function. He is doing well this morning. His breathing has been stable. He had no dizziness. No palpitation. No syncope. He has no PND nor orthopnea. He continues to be in sinus mechanism. He continues to be at this time on aspirin 81 mg daily, Lipitor 80 mg daily, flecainide 50 mg twice a day, diltiazem CD 120 mg daily, hydrochlorothiazide 12.5 mg daily, Tradjenta 5 mg daily, Cozaar 100 mg daily, meloxicam 7.5 mg daily, metoprolol succinate 200 mg daily, Protonix 40 mg twice a day, spironolactone 50 mg daily. PHYSICAL EXAMINATION: Blood pressure 123/80 with the heart rate in the 70s. LUNGS: Clear. HEART: Regular rate and rhythm. S1, S2. No S3. No rub. No gallop. ABDOMEN: Soft, nontender. Positive bowel sounds. No organomegaly. Right radial pulse intact. Right groin: No hematoma. LAB DATA: Lab data revealed BUN and creatinine 12 and 0.89. Potassium 3.9. Hemoglobin 14.8. EKG revealed sinus mechanism with no prolongation in the QT interval. IMPRESSION: 1. Mild triple-vessel coronary artery disease. 2. Paroxysmal atrial fibrillation. 3. Hypertension. 4. Hyperlipidemia. 5. Diabetes mellitus. RECOMMENDATION: I have recommended to initiate anticoagulation. He will be started on Eliquis 5 mg twice a day. I would expect he should be able to be discharged home today and followed as an outpatient. Depending on his progress, further recommendation will be made. MMODL / IJN: [id number] /
[2018-02-09] MEDS ORDERED: APIXABAN 5 MG TAB PO SCH (09:00)
[2018-02-09] MEDS: DILTIAZEM CD 120 MG CAP.ER.24H PO SCH (09:02)
[2018-02-09] MEDS: BUDESONIDE 0.5 MG/2 ML NEBU INHALATION SCH (09:02)
[2018-02-09] MEDS: HYDROCHLOROTHIAZIDE 12.5 MG CAP PO SCH (09:03)
[2018-02-09] MEDS: MELOXICAM 7.5 MG TAB PO SCH (09:03)
[2018-02-09] MEDS: METOPROLOL SUCCINATE (ER) 100 MG TAB.ER.24H PO SCH (09:03)
[2018-02-09] MEDS: FLECAINIDE 50 MG TAB PO SCH (09:03)
[2018-02-09] MEDS: GLIMEPIRIDE 1 MG TAB PO SCH (09:03)
--- NOTE | 2018-02-09 12:09 | P.DS ---
Providers Date of admission: 02/08/18 15:43 Expected date of discharge: 02/09/18 Attending physician: Criselda Hernandez Consults: 02/07/18 13:56 Consult Physician Urgent Consulting Provider: Robert Ariza Consult Reason/Comments: ua Do you want consulting provider notified?: Yes Primary care physician: Mack Delgado [facility] Course: This is a pleasant 63-year-old gentleman patient of Dr. Delgado in [place]. 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 Her daughter is our nurse practitioner in the office. Patient has requested our service to follow the patient for the chest pain. He comes in with anterior substernal chest discomfort, radiating to the posterior region of the chest, without any radiation to the arms and shoulders, accompanied by diaphoresis, he working in the basement doing some drywall yesterday and woke up this morning at 3:00, with chest pressure, substernal, constant along with sharp pain during deep inspiration, this persisted there was no relief but has some relief during rest, there is no cough, patient has edema which has improving he has some nasal stuffiness, patient denies any history of MRI CAD or angina past. Stress test was over 10 years ago, echocardiogram over 10 years ago, patient does not see a process improvement consultant on a routine basis, and however he was advised that he has either mitral valve disorder or other valve disorder. At home blood pressure was 140/90, blood sugars were okay Home he was given aspirin 325 mg, and subsequently evaluated in emergency room. Patient denies any history of DVT or PE in the past, While in the emergency room, he was given 3 nitroglycerin without any relief, initial troponins are negative less than 0.012, chest x-ray findings consistent with mild congestive heart failure with supple interstitial change d-dimer negative lipase normal at 271 EKG showing normal sinus rhythm with no acute ST- T wave changes. Consults to cardiology, echocardiogram to be performed along with serial troponins, 02/08: Echocardiogram reveals EF of 55-60%, mild concentric left ventricular hypertrophy, mild mitral regurgitation, mild tricuspid regurgitation, no pulmonary hypertension. Patient has been seen by cardiology and is undergoing heart catheterization that revealed mild triple-vessel coronary artery disease and normal left jugular size and systolic function. Plan is to start the patient on anticoagulation and antiarrhythmic. Patient was started on flecainide 02/09: Patient has been started on eliquis 5 mg twice daily by Dr. Valdivia and has been cleared for discharge home. Patient will be discharged home today in stable condition. Patient will be discharged also on Lasix to be taken as needed for lower extremity edema. Patient will be discharged home today in stable condition. Discharge diagnoses: 1. Acute chest pain suspicious of unstable angina with known history of diabetes mellitus hyperlipidemia and hypertension. Cardiology consult is appreciated. Heart catheterization showing mild disease. 2. Paroxysmal atrial fibrillation, new onset. 3. Diabetes mellitus type 2, hemoglobin A1c 6.3. 4. Hypertension 5. Hyperlipidemia 6. Diabetes with neuropathy 7. CKD stage I 8. Suspect diastolic type of CHF exacerbation 7. BMI of 31 Discharge plan: Home Impression and plan of care have been directed as dictated by the signing physician. Sindy Lanier nurse practitioner acting as scribe for signing physician. Patient Condition at Discharge: Good Plan - Discharge Summary New Discharge Prescriptions: New Apixaban [Eliquis] 5 mg PO BID #60 tab Atorvastatin [Lipitor] 80 mg PO HS #30 tab Flecainide [Tambocor] 50 mg PO Q12HR #60 tab Magnesium Oxide [Mag-Ox] 400 mg PO DAILY tab Furosemide [Lasix] 20 mg PO DAILY PRN #30 tab PRN Reason: Edema Continue Glimepiride [Amaryl] 1 mg PO BID Celecoxib [CeleBREX] 200 mg PO DAILY Atorvastatin [Lipitor] 80 mg PO HS Amitriptyline HCl [Elavil] 75 mg PO HS Omeprazole 20 mg PO DAILY sitaGLIPtin [Januvia] 100 mg PO DAILY Pregabalin [Lyrica] 150 mg PO TID Metoprolol Succinate [Toprol XL] 200 mg PO DAILY Diltiazem HCl [Cartia Xt] 120 mg PO DAILY traMADol HCL [Ultram] 50 mg PO QID PRN PRN Reason: Pain metFORMIN HCL 1,000 mg PO BID Losartan/Hydrochlorothiazide [Losartan-Hctz 100-12.5 mg Tab] 1 tab PO DAILY Spironolactone 50 mg PO DAILY Discharge Medication List Amitriptyline HCl [Elavil] 75 mg PO HS 02/07/18 [History] Atorvastatin [Lipitor] 80 mg PO HS 02/07/18 [History] Celecoxib [CeleBREX] 200 mg PO DAILY 02/07/18 [History] Diltiazem HCl [Cartia Xt] 120 mg PO DAILY 02/07/18 [History] Glimepiride [Amaryl] 1 mg PO BID 02/07/18 [History] Losartan/Hydrochlorothiazide [Losartan-Hctz 100-12.5 mg Tab] 1 tab PO DAILY [History] Metoprolol Succinate [Toprol XL] 200 mg PO DAILY 02/07/18 [History] Omeprazole 20 mg PO DAILY 02/07/18 [History] Pregabalin [Lyrica] 150 mg PO TID 02/07/18 [History] Spironolactone 50 mg PO DAILY 02/07/18 [History] metFORMIN HCL 1,000 mg PO BID 02/07/18 [History] sitaGLIPtin [Januvia] 100 mg PO DAILY 02/07/18 [History] traMADol HCL [Ultram] 50 mg PO QID PRN 02/07/18 [History] Apixaban [Eliquis] 5 mg PO BID #60 tab 02/09/18 [Rx] Atorvastatin [Lipitor] 80 mg PO HS #30 tab 02/09/18 [Rx] Flecainide [Tambocor] 50 mg PO Q12HR #60 tab 02/09/18 [Rx] Furosemide [Lasix] 20 mg PO DAILY PRN #30 tab 02/09/18 [Rx] Magnesium Oxide [Mag-Ox] 400 mg PO DAILY tab 02/09/18 [Rx] Follow up Appointment(s)/Referral(s): Dona Valdivia MD [STAFF PHYSICIAN] - 02/17/18 10:30 am Mack Delgado DO [Primary Care Provider] - 1 Week Patient Instructions/Handouts: *Surgery [facility] - After Heart Catheterization - Se[employer] Computer Instructions Activity/Diet/Wound Care/Special Instructions: See Activity Restriction Instructions Discharge Disposition: HOME SELF-CARE
== END 2018-02-09 11:23 | disposition home or self-care (01) | DRG 286 ==
LOC: EC 11:42 → 3OBS 14:01 → OBSVTOIN 02-08 15:43
PROVIDERS: ADMIT Family Medicine; ATTEND Family Medicine
PROC: B211YZZ Fluoroscopy of Multiple Coronary Arteries using Other Contrast (ICD-10-PCS; 2018-02-08)
PROC: B215YZZ Fluoroscopy of Left Heart using Other Contrast (ICD-10-PCS; 2018-02-08)
PROC: 4A023N7 Measurement of Cardiac Sampling and Pressure, Left Heart, Percutaneous Approach (ICD-10-PCS; principal; 2018-02-08 10:35)
DX: I25.110 Atherosclerotic heart disease of native coronary artery with unstable angina pectoris (principal); I50.33 Acute on chronic diastolic (congestive) heart failure; I13.0 Hypertensive heart and chronic kidney disease with heart failure and stage 1 through stage 4 chronic kidney disease, or unspecified chronic kidney disease; E11.22 Type 2 diabetes mellitus with diabetic chronic kidney disease; E11.40 Type 2 diabetes mellitus with diabetic neuropathy, unspecified; E83.42 Hypomagnesemia; I08.1 Rheumatic disorders of both mitral and tricuspid valves; K21.9 Gastro-esophageal reflux disease without esophagitis; N18.1 Chronic kidney disease, stage 1; I48.0 Paroxysmal atrial fibrillation; E78.5 Hyperlipidemia, unspecified; Z79.84 Long term (current) use of oral hypoglycemic drugs; Z79.1 Long term (current) use of non-steroidal anti-inflammatories (NSAID); Z79.891 Long term (current) use of opiate analgesic; Z79.899 Other long term (current) drug therapy; Z87.891 Personal history of nicotine dependence; Z83.3 Family history of diabetes mellitus; Z82.49 Family history of ischemic heart disease and other diseases of the circulatory system; Z80.1 Family history of malignant neoplasm of trachea, bronchus and lung
CPT/HCPCS: 36415; 71046; 80048; 80053; 80061; 82150; 82550; 82553; 83036; 83690; 83735; 83880; 84443; 84484; 85025; 85379; 85610; 85730; 93005; 93306; 93458; 94640; 96365; 96375; 96376; 99291